=== PATIENT | male | born 1990 ===

== ENCOUNTER 2020-10-04 19:06 | Emergency (ER) | payer SELFPAY ==
[~2020-10-04] VITALS: Ht 175.3 cm; Wt 68.4 kg
[2020-10-04 19:10] VITALS: BP 107/53
[2020-10-04] MEDS ORDERED: IBUPROFEN 600 MG TABLET ONE (20:47)
[2020-10-04] MEDS ORDERED: HYDROcodone/APAP 5/325 TABLET ONE (20:48)
--- NOTE | 2020-10-04 20:56 | NUR ---
Medicated per order, taken to xray.
[2020-10-04] MEDS ORDERED: HYDROcodone/APAP 5/325 TABLET PO PRN (21:00)
[2020-10-04] MEDS ORDERED: IBUPROFEN 600 MG TABLET PO ONE (21:00)
--- NOTE | 2020-10-04 21:56 | NUR ---
Resting, reports decrease in pain since meds. Waiting for dispo, RAD was called for stat reading.
== END 2020-10-04 22:25 | disposition home or self-care (01) ==
LOC: ED 22:00
DX: G89.29 Other chronic pain (principal); M25.511 Pain in right shoulder; M79.671 Pain in right foot; W19.XXXA Unspecified fall, initial encounter; Y93.89 Activity, other specified; Y92.89 Other specified places as the place of occurrence of the external cause; Y99.8 Other external cause status
CPT/HCPCS: 99284; 99285